=== PATIENT | female | born 1965 | race Caucasian/White ===

== ENCOUNTER 2019-07-15 14:27 | Outpatient (CLI) | payer MEDICARE, SELFPAY ==
--- NOTE | 2019-07-15 | MR_ITS ---
WS: [id number] MRI LUMBAR SPINE NONCONTRAST TECHNIQUE: Sagittal T1, T2 and STIR imaging. Axial T1 and T2 imaging. CLINICAL INFORMATION: LOW BACK PAIN COMPARISON: None. FINDINGS: Mild lumbar curve. No acute compression. No high-grade central canal stenosis. Disc space heights and vertebral body heights are well preserved. Cervical and thoracic spinal canal are patent on the scou t imaging. L1-L2: No significant disc bulging. Mild facet arthropathy. Spinal canal and foramen are patent. L2-L3: No significant disc bulging. Mild facet arthropathy. Spinal canal and foramen are patent. L3-L4: No significant disc bulging. Mild to moderate facet arthropathy. Spinal canal and foramen are patent. Mild ligamentum flavum hypertrophy. L4-L5: Mild annular bulging with slight narrowing of the left subarticular recess. Slight impingement on the traversing left L5 nerve root. Moderate facet arthropathy. Mild left and no significant right foraminal narrowing. L5-S1: Minimal annular bulging. Spinal canal and foramen are patent. Normal S1 nerve roots. Moderate facet arthropathy. Visualized pelvic bony structures: Normal. Paravertebral soft tissues: Normal. MR/MR lumbar spine wo con* [id number] IMPRESSION: 1. Mild lumbar curve. No acute compression. No significant central canal steno sis. 2. Annular bulging L4-5 eccentric to the left with mild narrowing of the left subarticular recess. Slight impingement traversing left L5 nerve root. Recommen d correlation left L5 nerve root symptoms. Mild left foraminal narrowing at thi s level. These findings are progressed since 2009. 3. Mild facet arthropathy L4-L5 and L5-S1.
--- NOTE | 2019-07-15 | XR_ITS ---
WS: [id number] LUMBAR SPINE FLEXION AND EXTENSION TECHNIQUE: 3 views of the lumbar spine: Lateral neutral, flexion, and extension views. CLINICAL INFORMATION: LOW BACK PAIN COMPARISON: None. FINDINGS: Normal lumbar alignment on the neutral view. No instability on the flexion and extension views. Mild chronic anterior wedging in the lower thoraci c spine at T10, T11 and T12. Aortic calcification. Cholecystectomy clips. Moderate facet arthropathy L5-S1. XR/XR lumbar spine f/e only [id number] IMPRESSION: No instability on flexion-extension
== END 2019-07-15 14:28 | disposition home or self-care (01) ==
LOC: RADWPI 14:33
PROVIDERS: Family Provider Internal Medicine; PCP Nurse Practitioner; Visit Provider Nurse Practitioner
DX: M54.5 Low back pain (principal); M47.817 Spondylosis without myelopathy or radiculopathy, lumbosacral region
CPT/HCPCS: 72120; 72148

== ENCOUNTER 2021-03-17 09:24 | Outpatient (CLI) | payer MEDICARE, SELFPAY ==
--- NOTE | 2021-03-17 09:28 | US_ITS ---
WS: [id number] ULTRASOUND PELVIS TECHNIQUE: Transabdominal. CLINICAL INFORMATION: PELVIC PERINEAL PAIN LMP: : No. COMPARISON: None. FINDINGS: Prior hysterectomy. No suspicious findings in the hysterectomy bed. Adnexa: No adnexal masses. Neither ovary is visualized. Free fluid: None. Other findings: Urine distended bladder appears normal. IMPRESSION: 1. Prior hysterectomy. 2. Ovaries not visualized. 3. Normal-appearing urine distended bladder. 4. No suspicious findings.
== END 2021-03-17 09:25 | disposition home or self-care (01) ==
LOC: RAD 09:27
PROVIDERS: PCP Nurse Practitioner; Visit Provider Nurse Practitioner
DX: R10.2 Pelvic and perineal pain (principal); Z90.710 Acquired absence of both cervix and uterus
CPT/HCPCS: 76856

== ENCOUNTER 2024-01-02 12:16 | Outpatient (CLI) | payer MEDICARE, MEDICAID, SELFPAY ==
--- NOTE | 2024-01-02 12:21 | CT_ITS ---
WS: [id number] LDCT LUNG CANCER SCREENING HISTORY: NICOTINE DEPENDENCE TECHNIQUE: Axial imaging performed from the apices to 1 cm below the costophrenic angles. Coronal and sagittal reformats are submitted with axial MIP series. All CT scans at [facility] use at least one of these dose optimization techniques: automated exposure control; mA and/or kV adjustment per patient size (includes targeted exams where dose is matched to clinical indication); or iterativ e reconstruction. DLP: 52.90 mGy.cm DIvol: Mean CTDIvol: 0.90 (mGy) COMPARISON: None available. Diagnostic quality: Satisfactory Lungs: Mild pulmonary hyperexpansion with emphysema. Thin linear scar RIGHT lung apex. No pulmonary m ass or nodule. No endobronchial lesions. Heart: Normal size heart with no pericardial effusion.. Other findings: Mild atherosclerosis aorta. Normal size pulmonary artery. No adrenal mass. CT/CT lung screening [id number] IMPRESSION: LUNG-RADS: 1-Negative FOLLOW UP: 12 Month: Continue annual screening with LDCT OTHER FINDINGS (S MODIFIER): None.
== END 2024-01-02 12:17 | disposition home or self-care (01) ==
LOC: RAD 12:18
PROVIDERS: PCP Nurse Practitioner; Visit Provider Nurse Practitioner Family
DX: Z12.2 Encounter for screening for malignant neoplasm of respiratory organs (principal); F17.210 Nicotine dependence, cigarettes, uncomplicated
CPT/HCPCS: 71271

== ENCOUNTER 2024-07-29 09:18 | Outpatient (CLI) | payer MEDICARE, MEDICAID, SELFPAY ==
--- NOTE | 2024-07-29 09:24 | MR_ITS ---
WS: [id number] MRI LUMBAR SPINE NONCONTRAST TECHNIQUE: Sagittal T1, T2 and STIR imaging. Axial T1 and T2 imaging. 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 No acute compression. No high-grade central canal stenosis. L1-L2: Mild facet arthropathy. Spinal canal and foramina are patent. L2-L3: Mild annular bulging. Mild facet arthropathy. Spinal canal and foramen are patent. L3-L4: Mild annular bulging. Mild facet arthropathy. Spinal canal and foramen are patent. L4-L5: Mild annular bulging with impingement LEFT subarticular recess and traversing LEFT L5 nerve root. Mild facet arthropathy. Foramen are patent. L5-S1: Mild annular bulging with slight effacement of the ventral thecal sac. Slight contact of the LEFT S1 nerve root. Mild facet arthropathy. Foramen are patent. Visualized pelvic bony structures: Normal. Paravertebral soft tissues: Normal. MR/MR lumbar spine wo con* [id number] IMPRESSION: 1. No significant central canal stenosis. 2. Mild lumbar curve. No acute compression. 3. Slight narrowing of the LEFT L4-5 subarticular recess with impingement on t raversing LEFT L5 nerve root. This is similar to previous. 4. Mild disc bulging L5-S1 with slight contact of the LEFT S1 nerve root. This appears similar to previous. 5. Mild to moderate facet arthropathy L3-L5. 6. No other significant changes
== END 2024-07-29 09:19 | disposition home or self-care (01) ==
PROVIDERS: Visit Provider Anesthesiology
DX: M51.17 Intervertebral disc disorders with radiculopathy, lumbosacral region (principal); M43.8X6 Other specified deforming dorsopathies, lumbar region; M51.372 Other intervertebral disc degeneration, lumbosacral region with discogenic back pain and lower extremity pain; M47.896 Other spondylosis, lumbar region; M51.362 Other intervertebral disc degeneration, lumbar region with discogenic back pain and lower extremity pain; M47.897 Other spondylosis, lumbosacral region
CPT/HCPCS: 72148